=== PATIENT | male | born 1965 | race Caucasian/White ===

== ENCOUNTER 2023-08-26 10:25 | Emergency (ER) | payer OTHER, SELFPAY ==
[2023-08-26 10:33] VITALS: BP 181/79; PULSE 72; RESP 18; TEMP 36.9; O2SAT 100
--- NOTE | 2023-08-26 10:36 | ED.GENADULT ---
HPI - General Adult General Chief complaint: Skin/Abscess/Foreign Body Stated complaint: facial rash and swelling Time Seen by Provider: 08/26/23 10:36 Source: patient Mode of arrival: ambulatory Limitations: no limitations History of Present Illness HPI narrative: 58-year-old male patient presents to the [facility] with complaints of a rash around the right eye, behind the left ear and between the webs of the fingers that started about 3 days ago. Patient states he was clearing out some brush about 4 5 days ago the rash started about 3 days ago believes it most likely is poison soni. Patient states he has had poison soni around his IV once before and they swell shut he had to go to the emergency department. Patient denies taking anything for his symptoms since they began. Related Data Allergies Allergy/AdvReac Type Severity Reaction Status Date / Time Penicillins AdvReac Mild Hives Verified 08/26/23 10:27 Sulfa (Sulfonamide AdvReac Mild Hives Verified 08/26/23 10:27 Antibiotics) Review of Systems Review of Systems: CONSTITUTIONAL: Denies fever, chills, or sweats. EYES: Denies visual changes, redness, or discharge. ENT: Denies rhinorrhea, congestion, sore throat, or otalgia. CARDIOVASCULAR: Denies chest pain, palpitations, or edema. RESPIRATORY: Denies cough or dyspnea. GASTROINTESTINAL: Denies abdominal pain, nausea, vomiting, or diarrhea. GENITOURINARY: Denies dysuria or hematuria. SKIN: Positive rash with itching. MUSCULOSKELETAL: Denies back pain, joint pain, or myalgia. NEUROLOGIC: Denies headache, numbness, or weakness. PSYCHIATRIC: Denies anxiety or depression. 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 There is no relevant family history pertinent to the presenting complaint. Exam Narrative: GENERAL: Well-appearing, well-nourished, and in no acute distress. HEAD: Normocephalic, atraumatic. EYES: PERRLA and EOMI. ENT: Nares clear, no rhinorrhea or epistaxis. Mucous membranes moist. NECK: Supple. No lymphadenopathy CHEST: Clear to auscultation. No respiratory distress. HEART: Regular rate and rhythm. No murmur heard. Normal peripheral pulses. ABDOMEN: Soft, nontender, nondistended, normal active bowel sounds. EXTREMITIES: Normal range of motion. No edema. SKIN: Warm, dry, no rash. patient has erythemic rash with swelling to the lateral portion of the right eye. There does not seem to be any concern for the eye itself. Appears to be limited to the skin. There is a a linear rash noted behind the left ear with surrounding erythema and slight swelling. There is also small little pustules noted between the webs of the fingers and on bilateral forearms. NEURO: No focal deficits. Alert and oriented x3. Course Course Level of Care: Express Care Visit Vital Signs Vital signs: Vital Signs Temperature 36.9 C 08/26/23 10:33 Pulse Rate 72 08/26/23 10:33 Respiratory Rate 18 08/26/23 10:33 Blood Pressure 181/79 H 08/26/23 10:33 Pulse Oximetry 100 08/26/23 10:33 Oxygen Delivery Room Air 08/26/23 10:33
== END 2023-08-26 10:51 | disposition home or self-care (01) ==
PROVIDERS: Emergency Provider Nurse Practitioner Family; PCP Nurse Practitioner Family
DX: L25.5 Unspecified contact dermatitis due to plants, except food (principal); K21.9 Gastro-esophageal reflux disease without esophagitis; F17.220 Nicotine dependence, chewing tobacco, uncomplicated
CPT/HCPCS: 99213; G0463